=== PATIENT | female | born 1975 | race American Indian/Alaskan Native ===

== ENCOUNTER 2020-09-24 21:34 | Emergency (ER) | payer OTHER ==
[2020-09-24 22:39] LABS: Basophils % (Auto) 0.3 % (0.0-1.8); Eosinophils # (Auto) 0.1 K/mm3 (0.0-0.4); Eosinophils % (Auto) 0.5 % (0.0-4.3); Hematocrit 34.6 % (30.3-42.9); Hemoglobin 11.6 gm/dl (10.1-14.3); Lymphocytes # (Auto) 1.3 K/mm3 (1.2-5.4); Lymphocytes % (Auto) 13.5 % (13.4-35.0); Mean Corpuscular HGB Conc 34 % (30-34); Mean Corpuscular Volume 95 fl (79-97); Monocytes # (Auto) 0.6 K/mm3 (0.0-0.8); Monocytes % (Auto) 6.3 % (0.0-7.3); Platelet Count 278 K/mm3 (140-440); Red Blood Count 3.66 M/mm3 (3.65-5.03); Red Cell Distribution Width 13.2 % (13.2-15.2)
[2020-09-24] MEDS ORDERED: MORPHINE 4 MG/1 ML INJ IV ONE (22:54)
[2020-09-24] MEDS ORDERED: SODIUM CHLORIDE 0.9% 1000 ML 1,000 ML IV ONE (22:54)
[2020-09-24] MEDS ORDERED: ONDANSETRON 4 MG/2 ML INJ IV ONE (22:54)
[2020-09-24 23:04] LABS: Alanine Aminotransferase 34 units/L (7-56); Albumin 4.5 g/dL (3.9-5); BUN/Creatinine Ratio 24; Blood Urea Nitrogen 24 mg/dL (7-17); Hemolysis Index 2
--- NOTE | 2020-09-24 23:41 | Emergency Department Report ---
ED Abdominal Pain HPI - General Chief Complaint: Abdominal Pain Stated Complaint: ABDOMINAL PAIN,VOMITING Time Seen by Provider: 09/24/20 22:54 Source: patient Mode of arrival: Ambulatory Limitations: No Limitations - History of Present Illness Initial Comments: Patient is a 44-year-old female presents emergency room complaints of periumbilical abdominal pain that began a few days ago. She has associated nausea, vomiting, diarrhea. She denies any fever, urinary symptoms, hematochezia, melena, hematemesis, pus in the stool, abnormal vaginal discharge. Past medical history of hypertension and HSV. She reports that codeine causes itching. Last menstrual cycle August 26. No past abdominal surgical history. Patient states that she went to [facility] emergency room and was diagnosed with ovarian cyst and uterine fibroids but has not followed up with [facility]. - Related Data Previous Rx's Medication Instructions Recorded Last Taken Type Hyoscyamine Subl [Levsin Sl 0.125 0.125 mg SL Q6HR PRN #10 tab 09/25/20 Unknown Rx TAB] Naproxen [EC-Naproxen] 500 mg PO BID PRN #14 tablet. 09/25/20 Unknown Rx Ondansetron [Zofran Odt] 4 mg PO Q8HR PRN #10 tab.rapdis 09/25/20 Unknown Rx traMADoL [Ultram 50 MG tab] 50 mg PO Q6HR PRN #10 tablet 09/25/20 Unknown Rx Allergies Allergy/AdvReac Type Severity Reaction Status Date / Time No Known Allergies Allergy Verified 09/24/20 21:54 ED Review of Systems ROS: Stated complaint: ABDOMINAL PAIN,VOMITING Other details as noted in HPI Comment: All other systems reviewed and negative ED Past Medical Hx - Past Medical History Previous Medical History?: No Hx Hypertension: Yes - Surgical History Past Surgical History?: No - Medications Home Medications: Home Medications Medication Instructions Recorded Confirmed Last Taken Type Hyoscyamine Subl [Levsin Sl 0.125 0.125 mg SL Q6HR PRN #10 tab 09/25/20 Unknown Rx TAB] Naproxen [EC-Naproxen] 500 mg PO BID PRN #14 tablet. 09/25/20 Unknown Rx Ondansetron [Zofran Odt] 4 mg PO Q8HR PRN #10 tab.rapdis 09/25/20 Unknown Rx traMADoL [Ultram 50 MG tab] 50 mg PO Q6HR PRN #10 tablet 09/25/20 Unknown Rx ED Physical Exam - General Limitations: No Limitations General appearance: alert, in no apparent distress - Head Head exam: Present: atraumatic, normocephalic - Eye Eye exam: Present: normal appearance - ENT ENT exam: Present: mucous membranes moist - Respiratory Respiratory exam: Present: normal lung sounds bilaterally. Absent: respiratory distress, wheezes, rales, rhonchi, stridor, chest wall tenderness, accessory muscle use, decreased breath sounds, prolonged expiratory - Cardiovascular Cardiovascular Exam: Present: regular rate, normal rhythm, normal heart sounds. Absent: systolic murmur, diastolic murmur, rubs, gallop - GI/Abdominal GI/Abdominal exam: Present: soft, tenderness (periumbilical ), normal bowel sounds. Absent: distended, guarding, rebound, rigid - Neurological Exam Neurological exam: Present: alert, oriented X3 - Psychiatric Psychiatric exam: Present: normal affect, normal mood - Skin Skin exam: Present: warm, dry, intact ED Course Vital Signs 09/24/20 09/25/20 09/25/20 21:54 01:44 02:14 Temperature 98.4 F Pulse Rate 69 Respiratory 16 20 20 Rate Blood Pressure 128/68 [Left] O2 Sat by Pulse 96 Oximetry 09/25/20 09/25/20 04:13 04:16 Temperature 98.6 F Pulse Rate 70 Respiratory 20 20 Rate Blood Pressure 122/77 [Left] O2 Sat by Pulse 99 99 Oximetry ED Medical Decision Making - Lab Data Result diagrams: 09/24/20 22:17 09/24/20 22:17 Lab Results 09/24/20 09/24/20 09/24/20 Range/Units 22:17 22:17 22:17 WBC 9.9 (4.5-11.0) K/mm3 RBC 3.66 (3.65-5.03) M/mm3 Hgb 11.6 (10.1-14.3) gm/dl Hct 34.6 (30.3-42.9) % MCV 95 (79-97) fl MCH 32 (28-32) pg MCHC 34 (30-34) % RDW 13.2 (13.2-15.2) % Plt Count 278 (140-440) K/mm3 Lymph % (Auto) 13.5 (13.4-35.0) % [place] % (Auto) 6.3 (0.0-7.3) % Eos % (Auto) 0.5 (0.0-4.3) % Baso % (Auto) 0.3 (0.0-1.8) % Lymph # (Auto) 1.3 (1.2-5.4) K/mm3 [place] # (Auto) 0.6 (0.0-0.8) K/mm3 Eos # (Auto) 0.1 (0.0-0.4) K/mm3 Baso # (Auto) 0.0 (0.0-0.1) K/mm3 Seg Neutrophils % 79.4 H (40.0-70.0) % Seg Neutrophils # 7.9 H (1.8-7.7) K/mm3 Sodium 135 L (137-145) mmol/L Potassium 4.0 (3.6-5.0) mmol/L Chloride 97.7 L (98-107) mmol/L Carbon Dioxide 26 (22-30) mmol/L Anion Gap 15 mmol/L BUN 24 H (7-17) mg/dL Creatinine 1.0 (0.6-1.2) mg/dL Estimated GFR > 60 ml/min BUN/Creatinine Ratio 24 % Glucose 85 (65-100) mg/dL Calcium 9.0 (8.4-10.2) mg/dL Total Bilirubin 0.70 (0.1-1.2) mg/dL AST 18 (5-40) units/L ALT 34 (7-56) units/L Alkaline Phosphatase 79 (35-129) units/L Total Protein 7.3 (6.3-8.2) g/dL Albumin 4.5 (3.9-5) g/dL Albumin/Globulin Ratio 1.6 % Lipase 12 L (13-60) units/L Urine Color (Yellow) Urine Turbidity (Clear) Urine pH (5.0-7.0) Ur Specific [place] (1.003-1.030) Urine Protein (Negative) mg/dL Urine Glucose (UA) (Negative) mg/dL Urine Ketones (Negative) mg/dL Urine Blood (Negative) Urine Nitrite (Negative) Urine Bilirubin (Negative) Urine Urobilinogen (<2.0) mg/dL Ur Leukocyte Esterase (Negative) Urine WBC (Auto) (0.0-6.0) /HPF Urine RBC (Auto) (0.0-6.0) /HPF U Epithel Cells (Auto) (0-13.0) /HPF Urine Bacteria (Auto) (Negative) /HPF Urine Mucus /HPF Urine HCG, Qual (Negative) Urine Opiates Screen Urine Methadone Screen Ur Barbiturates Screen Ur Phencyclidine Scrn Ur Amphetamines Screen U Benzodiazepines Scrn Urine Cocaine Screen U Marijuana (THC) Screen Drugs of Abuse Note 09/25/20 09/25/20 Range/Units 01:23 01:23 WBC (4.5-11.0) K/mm3 RBC (3.65-5.03) M/mm3 Hgb (10.1-14.3) gm/dl Hct (30.3-42.9) % MCV (79-97) fl MCH (28-32) pg MCHC (30-34) % RDW (13.2-15.2) % Plt Count (140-440) K/mm3 Lymph % (Auto) (13.4-35.0) % [place] % (Auto) (0.0-7.3) % Eos % (Auto) (0.0-4.3) % Baso % (Auto) (0.0-1.8) % Lymph # (Auto) (1.2-5.4) K/mm3 [place] # (Auto) (0.0-0.8) K/mm3 Eos # (Auto) (0.0-0.4) K/mm3 Baso # (Auto) (0.0-0.1) K/mm3 Seg Neutrophils % (40.0-70.0) % Seg Neutrophils # (1.8-7.7) K/mm3 Sodium (137-145) mmol/L Potassium (3.6-5.0) mmol/L Chloride (98-107) mmol/L Carbon Dioxide (22-30) mmol/L Anion Gap mmol/L BUN (7-17) mg/dL Creatinine (0.6-1.2) mg/dL Estimated GFR ml/min BUN/Creatinine Ratio % Glucose (65-100) mg/dL Calcium (8.4-10.2) mg/dL Total Bilirubin (0.1-1.2) mg/dL AST (5-40) units/L ALT (7-56) units/L Alkaline Phosphatase (35-129) units/L Total Protein (6.3-8.2) g/dL Albumin (3.9-5) g/dL Albumin/Globulin Ratio % Lipase (13-60) units/L Urine Color Yellow (Yellow) Urine Turbidity Slightly-cloudy (Clear) Urine pH 5.0 (5.0-7.0) Ur Specific [place] 1.016 (1.003-1.030) Urine Protein <15 mg/dl (Negative) mg/dL Urine Glucose (UA) Neg (Negative) mg/dL Urine Ketones 20 (Negative) mg/dL Urine Blood Mod (Negative) Urine Nitrite Neg (Negative) Urine Bilirubin Neg (Negative) Urine Urobilinogen 4.0 (<2.0) mg/dL Ur Leukocyte Esterase Sm (Negative) Urine WBC (Auto) 6.0 (0.0-6.0) /HPF Urine RBC (Auto) 3.0 (0.0-6.0) /HPF U Epithel Cells (Auto) 22.0 H (0-13.0) /HPF Urine Bacteria (Auto) 1+ (Negative) /HPF Urine Mucus Few /HPF Urine HCG, Qual Negative (Negative) Urine Opiates Screen Presumptive negative Urine Methadone Screen Presumptive negative Ur Barbiturates Screen Presumptive negative Ur Phencyclidine Scrn Presumptive negative Ur Amphetamines Screen Presumptive negative U Benzodiazepines Scrn Presumptive negative Urine Cocaine Screen Presumptive negative U Marijuana (THC) Screen Presumptive negative Drugs of Abuse Note Disclamer Vital Signs 09/24/20 09/25/20 09/25/20 21:54 01:44 02:14 Temperature 98.4 F Pulse Rate 69 Respiratory 16 20 20 Rate Blood Pressure 128/68 [Left] O2 Sat by Pulse 96 Oximetry 09/25/20 09/25/20 04:13 04:16 Temperature 98.6 F Pulse Rate 70 Respiratory 20 20 Rate Blood Pressure 122/77 [Left] O2 Sat by Pulse 99 99 Oximetry - Radiology Data Radiology results: report reviewed Ordering Physician: JORGITO MOYA Date of Service: 09/24/20 Procedure(s): CT abdomen pelvis w con Accession Number(s): [id number] cc: JORGITO MOYA CT abdomen pelvis w con INDICATION / CLINICAL INFORMATION: abd pain, n/v/d. TECHNIQUE: Axial CT imaging of abdomen and pelvis was obtained with IV contrast. Coronal and sagittal reformatted imaging obtained and reviewed. All CT scans at this location are performed using CT dose reduction for ALARA by means of automated exposure control. COMPARISON: None available. FINDINGS: CT abdomen with contrast demonstrates grossly normal appearance of the liver, spleen, pancreas, kidneys, and adrenal glands. No obvious gallbladder abnormality or biliary dilatation. CT pelvis with IV contrast demonstrates an IUD within the endometrium of the uterus. IUD appears to be in satisfactory position. There is a round benign-appearing mass within the fundus of the uterus measuring 5.1 x 4.7 cm. This is most likely a uterine fibroid. No additional pelvic masses are noted. No free fluid. No focal inflammatory change. Incidental note is made of a left ovarian cyst measuring 2.8 cm. A normal appendix is present. Moderate amount retained stool is noted throughout the colon. Otherwise the GI tract is unremarkable. Visualized lung bases are clear. Review of skeletal structures does not reveal any significant acute osseous abnormality. IMPRESSION: 1. 5 cm uterine fundal mass consistent with fibroid. 2. 2.8 cm left ovarian cyst. 3. No other additional significant findings. 4/ GI tract is grossly unremarkable, other than moderate amount retained stool.. Signer Name: Denise Andino MD Signed: 09/25/2020 2:44 AM Workstation Name: [id number] Transcribed By: Dictated By: Denise Andino MD Electronically Authenticated By: Denise Andino MD Signed Date/Time: 09/25/20243 DD/ 9 TD/TT: - Medical Decision Making Patient is a 44-year-old female presents emergency room complaints of periumbilical abdominal pain that began a few days ago. She has associated nausea, vomiting, diarrhea. She denies any fever, urinary symptoms, hematochezia, melena, hematemesis, pus in the stool, abnormal vaginal discharge. Past medical history of hypertension and HSV. She reports that codeine causes itching. Last menstrual cycle August 7. No past abdominal surgical history. Patient states that she went to [facility] emergency room and was diagnosed with ovarian cyst and uterine fibroids but has not followed up with [facility]. Vitals are normal. On exam patient has periumbilical abdominal tenderness on patient, no guarding, no rebound, no rigidity, normal bowel sounds, no peritoneal signs. Labs are stable. UA without evidence of UTI. UDS negative. CT abdomen pelvis with IV contrast: 1. 5 cm uterine fundal mass consistent with fibroid. 2. 2.8 cm left ovarian cyst. 3. No other additional significant findings. 4/ GI tract is grossly unremarkable, other than moderate amount retained stool.. Discussed all results with patient and answer questions. Patient given medications on the emergency department as she did not drive and symptoms improved. Patient given prescription for medications. Discussed the importance of primary care and [facility] follow-up. Advised patient Please take medication as prescribed as needed. Increase your water intake. Eat a bland liquid diet and slowly advance her diet as tolerated. Follow-up with [facility]. Follow-up with a primary care doctor. Return to emergency room for any new or worsening symptoms Critical care attestation.: If time is entered above; I have spent that time in minutes in the direct care of this critically ill patient, excluding procedure time. ED Disposition Clinical Impression: Nausea vomiting and diarrhea Abdominal pain Qualifiers: Abdominal location: periumbilical Qualified Code(s): R10.33 - Periumbilical pain Uterine fibroid Qualifiers: Uterine leiomyoma location: unspecified location Qualified Code(s): D25.9 - Leiomyoma of uterus, unspecified Ovarian cyst Qualifiers: Laterality: left Qualified Code(s): N83.202 - Unspecified ovarian cyst, left side Disposition: DC- TO HOME OR SELFCARE Is pt being admited?: No Does the pt Need Aspirin: No Condition: Stable Instructions: Uterine Fibroids, [id number], Ovarian Cyst, [id number], Abdominal Pain (ED) Additional Instructions: Please take medication as prescribed as needed. Increase your water intake. Eat a bland liquid diet and slowly advance her diet as tolerated. Follow-up with [facility]. Follow-up with a primary care doctor. Return to emergency room for any new or worsening symptoms Prescriptions: Naproxen [EC-Naproxen] 500 mg PO BID PRN #14 tablet. PRN Reason: Pain, Moderate (4-6) Hyoscyamine Subl [Levsin Sl 0.125 TAB] 0.125 mg SL Q6HR PRN #10 tab PRN Reason: diarrhea/cramping traMADoL [Ultram 50 MG tab] 50 mg PO Q6HR PRN #10 tablet PRN Reason: Pain , Severe (7-10) Ondansetron [Zofran Odt] 4 mg PO Q8HR PRN #10 tab.rapdis PRN Reason: vomiting Referrals: [facility] [Provider Group] - 2-3 Days ENEIDA MARCELO MD [Staff Physician] - 2-3 Days Time of Disposition: 02:50 Print Language: [place]OU[place] KORE[place]
[2020-09-25] MEDS ORDERED: MORPHINE 4 MG/1 ML INJ ONE (01:35)
[2020-09-25] MEDS ORDERED: ONDANSETRON 4 MG/2 ML INJ ONE (01:35)
[2020-09-25 01:40] LABS: Bacteria,Urine 1+ /HPF (Negative); Bilirubin,Urine NEG (Negative); Blood,Urine MOD (Negative); Color,Urine Yellow (Yellow); Mucus,Urine FEW /HPF; Protein,Urine <15 mg/dL mg/dL (Negative)
[2020-09-25 01:42] LABS: Amphetamine Screen,Urine PRESUMPTIVE NEGATIVE; Benzodiazepines Screen,Urine PRESUMPTIVE NEGATIVE; Cannabinoid Screen,Urine PRESUMPTIVE NEGATIVE; Cocaine Screen,Urine PRESUMPTIVE NEGATIVE; Methadone Screen,Urine PRESUMPTIVE NEGATIVE; Opiate Screen,Urine PRESUMPTIVE NEGATIVE
[2020-09-25 01:46] LABS: HCG Qualitative,Urine Negative (Negative)
--- NOTE | 2020-09-25 02:48 | Cat Scan Report ---
CT abdomen pelvis w con INDICATION / CLINICAL INFORMATION: abd pain, n/v/d. TECHNIQUE: Axial CT imaging of abdomen and pelvis was obtained with IV contrast. Coronal and sagittal reformatte d imaging obtained and reviewed. All CT scans at this location are performed using CT dose reduction for ALARA by means of automated exposure control. COMPARISON: None available. FINDINGS: CT abdomen with contrast demonstrates grossly normal appearance of the liver, spleen, pancreas, kidne ys, and adrenal glands. No obvious gallbladder abnormality or biliary dilatation. CT pelvis with IV contrast demonstrates an IUD within the endometrium of the uterus. IUD appears to b e in satisfactory position. There is a round benign-appearing mass within the fundus of the uterus me asuring 5.1 x 4.7 cm. This is most likely a uterine fibroid. No additional pelvic masses are noted. N o free fluid. No focal inflammatory change. Incidental note is made of a left ovarian cyst measuring 2.8 cm. A normal appendix is present. Moderate amount retained stool is noted throughout the colon. O therwise the GI tract is unremarkable. Visualized lung bases are clear. Review of skeletal structures does not reveal any significant acute osseous abnormality. IMPRESSION: 1. 5 cm uterine fundal mass consistent with fibroid. 2. 2.8 cm left ovarian cyst. 3. No other additional significant findings. 4/ GI tract is grossly unremarkable, other than moderate amount retained stool.. Signer Name: Denise Andino MD Signed: 09/25/2020 2:44 AM Workstation Name: [id number]
[2020-09-25 04:13] VITALS: BP 122/77
== END 2020-09-25 06:28 | disposition home or self-care (01) ==
LOC: ED 21:34
DX: N83.202 Unspecified ovarian cyst, left side (principal); D25.9 Leiomyoma of uterus, unspecified; R11.2 Nausea with vomiting, unspecified; I10 Essential (primary) hypertension; Z79.899 Other long term (current) drug therapy
CPT/HCPCS: 36415; 74177; 80053; 80307; 81001; 81025; 83690; 85025; 96361; 96374; 96375; 99284; J2270; J2405; J7030; Q9967

== ENCOUNTER 2020-09-29 08:06 | Emergency (ER) | payer OTHER ==
[2020-09-29] MEDS ORDERED: MORPHINE 4 MG/1 ML INJ IV ONE (10:29)
[2020-09-29] MEDS ORDERED: SODIUM CHLORIDE 0.9% 1000 ML 1,000 ML IV ONE (10:29)
[2020-09-29] MEDS ORDERED: ONDANSETRON 4 MG/2 ML INJ IV ONE (10:29)
[2020-09-29 10:41] LABS: Basophils % (Auto) 0.4 % (0.0-1.8); Eosinophils # (Auto) 0.1 K/mm3 (0.0-0.4); Eosinophils % (Auto) 1.4 % (0.0-4.3); Hematocrit 34.3 % (30.3-42.9); Hemoglobin 11.8 gm/dl (10.1-14.3); Lymphocytes # (Auto) 1.4 K/mm3 (1.2-5.4); Mean Corpuscular HGB Conc 34 % (30-34); Mean Corpuscular Volume 95 fl (79-97); Platelet Count 297 K/mm3 (140-440); Red Blood Count 3.62 M/mm3 (3.65-5.03); Red Cell Distribution Width 12.8 % (13.2-15.2)
[2020-09-29 10:58] LABS: Alanine Aminotransferase 25 units/L (7-56); Albumin 4.1 g/dL (3.9-5); BUN/Creatinine Ratio 15; Blood Urea Nitrogen 15 mg/dL (7-17); Calcium 9.7 mg/dL (8.4-10.2); Hemolysis Index 1
[2020-09-29 11:35] LABS: Bilirubin,Urine NEG (Negative); Blood,Urine NEG (Negative); Color,Urine Amber (Yellow); Hyaline Casts,Urine 4 /LPF; Mucus,Urine 3+ /HPF
--- NOTE | 2020-09-29 11:43 | Ultrasound Report ---
ULTRASOUND ABDOMEN, COMPLETE INDICATION: abd/pelvic pain. COMPARISON: No relevant prior imaging study available. FINDINGS: Pancreas: No significant abnormality. Abdominal Aorta: No significant abnormality. IVC: No significant abnormality. Liver: No significant abnormality. Normal hepatopedal blood flow in the main portal vein. Gallbladder: Mild echogenic material suspicious for gallbladder sludge. Bile ducts: No significant abnormality. Common bile duct measures 3 mm. Kidneys: Right: No significant abnormality. Left: No significant abnormality. Spleen: No significant abnormality. Free fluid: None. Additional Findings: None. IMPRESSION: 1. No sonographic abnormality of the abdomen. Signer Name: Roque Schmidt MD Signed: 09/29/2020 11:39 AM Workstation Name: [email or web address]
--- NOTE | 2020-09-29 11:44 | Ultrasound Report ---
Pelvic ultrasound with Doppler INDICATION: Pelvic pain FINDINGS: The uterus measures 10 x 7 x 6 cm. There is a focal nodular lesion within the upper fundus of the uterus measuring 4 cm in diameter. The right ovary is normal. The left ovary is slightly enlar ged measuring 5.3 x 3.8 cm. There is a 4.5 cm cystlike lesion within the left ovary that appears mild ly complex. IMPRESSION: Mildly complex 4.5 cm cystic lesion within the left ovary may represent hemorrhagic cyst. Fibroid uterus. Signer Name: Roque Schmidt MD Signed: 09/29/2020 11:40 AM Workstation Name: [id number]
--- NOTE | 2020-09-29 12:39 | Emergency Department Report ---
ED Abdominal Pain HPI - General Chief Complaint: Abdominal Pain Stated Complaint: EMESIS/DIZZINESS/ABD PAIN Time Seen by Provider: 09/29/20 09:27 Source: patient Mode of arrival: Ambulatory Limitations: No Limitations - History of Present Illness Initial Comments: This is a 44-year-old female nontoxic, well nourished in appearance, no acute signs of distress presents to the ED with c/o of acute on chronic intermittent nausea and vomiting and abdominal pain several weeks. Patient denies any vaginal discharge. Patient describes vomiting as food content and yellow gastric acid. Patient describes abdominal pain as cramping and aching with level of 8/10 upper abdomen but mostly in the pelvic area. Patient denies chest pain, short of breath, fever, hemoptysis, blood in stool, chills, headache, stiff neck, numbness or tingling. Patient denies any radiation of pain. Patient denies any diarrhea or constipation. Denies any blood in stool. P atient denies any recent travels. Patient patient denies any drug allergies or significant past medical history. Patient stated has history of uterine fibroids. MD Complaint: abdominal pain -: week(s) Location: LUQ, RUQ Radiation: none Migration to: no migration Severity: mild Severity scale (0 -10): 8 Quality: aching Consistency: intermittent Improves With: nothing Worsens With: nothing Associated Symptoms: nausea, vomiting. denies: diarrhea, fever, chills, constipation, dysuria, hematemesis, hematochezia, melena, hematuria, anorexia, syncope - Related Data Previous Rx's Medication Instructions Recorded Last Taken Type Hyoscyamine Subl [Levsin Sl 0.125 0.125 mg SL Q6HR PRN #10 tab 09/25/20 Unknown Rx TAB] Naproxen [EC-Naproxen] 500 mg PO BID PRN #14 tablet. 09/25/20 Unknown Rx Ondansetron [Zofran Odt] 4 mg PO Q8HR PRN #10 tab.rapamanda 09/25/20 Unknown Rx traMADoL [Ultram 50 MG tab] 50 mg PO Q6HR PRN #10 tablet 09/25/20 Unknown Rx Naproxen 500 mg PO Q12H PRN #12 tablet 09/29/20 Unknown Rx Ondansetron [Zofran Odt] 4 mg PO Q8HR PRN #12 tab.mackenzie 09/29/20 Unknown Rx cephALEXin [Keflex] 500 mg PO Q8HR #21 cap 09/29/20 Unknown Rx Allergies Allergy/AdvReac Type Severity Reaction Status Date / Time No Known Allergies Allergy Verified 09/29/20 08:08 ED Review of Systems ROS: Stated complaint: EMESIS/DIZZINESS/ABD PAIN Other details as noted in HPI Comment: All other systems reviewed and negative Constitutional: denies: chills, fever Eyes: denies: eye pain, eye discharge, vision change ENT: denies: ear pain, throat pain Respiratory: denies: cough, shortness of breath, wheezing Cardiovascular: denies: chest pain, palpitations Endocrine: no symptoms reported Gastrointestinal: abdominal pain, nausea, vomiting. denies: diarrhea, con stipation, hematemesis, melena, hematochezia Genitourinary: denies: urgency, dysuria, discharge Musculoskeletal: denies: back pain, joint swelling, arthralgia Skin: denies: rash, lesions Neurological: denies: headache, weakness, paresthesias Psychiatric: denies: anxiety, depression Hematological/Lymphatic: denies: easy bleeding, easy bruising ED Past Medical Hx - Past Medical History Hx Hypertension: Yes Additional medical history: FIBROIDS, CYST - Surgical History Past Surgical History?: No - Social History Smoking Status: Never Smoker - Medications Home Medications: Home Medications Medication Instructions Recorded Confirmed Last Taken Type Hyoscyamine Subl [Levsin Sl 0.125 0.125 mg SL Q6HR PRN #10 tab 09/25/20 Unknown Rx TAB] Naproxen [EC-Naproxen] 500 mg PO BID PRN #14 tablet. 09/25/20 Unknown Rx Ondansetron [Zofran Odt] 4 mg PO Q8HR PRN #10 tab.rapdis 09/25/20 Unknown Rx traMADoL [Ultram 50 MG tab] 50 mg PO Q6HR PRN #10 tablet 09/25/20 Unknown Rx Naproxen 500 mg PO Q12H PRN #12 tablet 09/29/20 Unknown Rx Ondansetron [Zofran Odt] 4 mg PO Q8HR PRN #12 tab.rapdis 09/29/20 Unknown Rx cephALEXin [Keflex] 500 mg PO Q8HR #21 cap 09/29/20 Unknown Rx ED Physical Exam - General Limitations: No Limitations General appearance: alert, in no apparent distress - Head Head exam: Present: atraumatic, normocephalic - Eye Eye exam: Present: normal appearance - ENT ENT exam: Present: normal exam, normal orophraynx - Neck Neck exam: Present: normal inspection, full ROM. Absent: tenderness, meningismus, lymphadenopathy - Respiratory Respiratory exam: Present: normal lung sounds bilaterally. Absent: respiratory distress, wheezes, rales, rhonchi, stridor, chest wall tenderness, accessory muscle use, decreased breath sounds, prolonged expiratory - Cardiovascular Cardiovascular Exam: Present: regular rate, normal rhythm, normal heart sounds. Absent: bradycardia, tachycardia, irregular rhythm, systolic murmur, diastolic murmur, rubs, gallop - GI/Abdominal GI/Abdominal exam: Present: soft, tenderness (Right upper and left upper abdomen), normal bowel sounds. Absent: distended, guarding, rebound, rigid, diminished bowel sounds - Extremities Exam Extremities exam: Present: normal inspection, full ROM - Back Exam Back exam: Present: normal inspection, full ROM. Absent: tenderness, CVA tenderness (R), CVA tenderness (L), muscle spasm, paraspinal tenderness, vertebral tenderness, rash noted - Neurological Exam Neurological exam: Present: alert, oriented X3, normal gait - Psychiatric Psychiatric exam: Present: normal affect, normal mood - Skin Skin exam: Present: warm, dry, intact, normal color. Absent: rash ED Course Vital Signs 09/29/20 09/29/20 08:11 14:37 Temperature 98.2 F Pulse Rate 57 L 61 Respiratory 18 16 Rate Blood Pressure 120/65 Blood Pressure 150/65 [Left] O2 Sat by Pulse 96 98 Oximetry - Reevaluation(s) Reevaluation #1: 09/29/20 12:39 Patient is speaking in full sentences with no signs of distress noted. Reevaluation #2: 09/29/20 13:43 Patient has worsening epigastric pain. Will order CT scan with IV contrast. Will order pain medication as well. ED Medical Decision Making - Lab Data Result diagrams: 09/29/20 09:59 09/29/20 09:59 Lab Results 09/29/20 09/29/20 09/29/20 Range/Units 09:59 09:59 09:59 WBC 8.8 (4.5-11.0) K/mm3 RBC 3.62 L (3.65-5.03) M/mm3 Hgb 11.8 (10.1-14.3) gm/dl Hct 34.3 (30.3-42.9) % MCV 95 (79-97) fl MCH 33 H (28-32) pg MCHC 34 (30-34) % RDW 12.8 L (13.2-15.2) % Plt Count 297 (140-440) K/mm3 Lymph % (Auto) 16.0 (13.4-35.0) % Morgan % (Auto) 11.0 H (0.0-7.3) % Eos % (Auto) 1.4 (0.0-4.3) % Baso % (Auto) 0.4 (0.0-1.8) % Lymph # (Auto) 1.4 (1.2-5.4) K/mm3 Morgan # (Auto) 1.0 H (0.0-0.8) K/mm3 Eos # (Auto) 0.1 (0.0-0.4) K/mm3 Baso # (Auto) 0.0 (0.0-0.1) K/mm3 Seg Neutrophils % 71.2 H (40.0-70.0) % Seg Neutrophils # 6.3 (1.8-7.7) K/mm3 Sodium 137 (137-145) mmol/L Potassium 3.5 L (3.6-5.0) mmol/L Chloride 98.5 (98-107) mmol/L Carbon Dioxide 30 (22-30) mmol/L Anion Gap 12 mmol/L BUN 15 (7-17) mg/dL Creatinine 1.0 (0.6-1.2) mg/dL Estimated GFR > 60 ml/min BUN/Creatinine Ratio 15 % Glucose 80 (65-100) mg/dL Calcium 9.7 (8.4-10.2) mg/dL Total Bilirubin 0.50 (0.1-1.2) mg/dL AST 21 (5-40) units/L ALT 25 (7-56) units/L Alkaline Phosphatase 77 (35-129) units/L Total Protein 7.5 (6.3-8.2) g/dL Albumin 4.1 (3.9-5) g/dL Albumin/Globulin Ratio 1.2 % Lipase 14 (13-60) units/L HCG, Qual Negative (Negative) Urine Color (Yellow) Urine Turbidity (Clear) Urine pH (5.0-7.0) Ur Specific [place] (1.003-1.030) Urine Protein (Negative) mg/dL Urine Glucose (UA) (Negative) mg/dL Urine Ketones (Negative) mg/dL Urine Blood (Negative) Urine Nitrite (Negative) Urine Bilirubin (Negative) Urine Urobilinogen (<2.0) mg/dL Ur Leukocyte Esterase (Negative) Urine WBC (Auto) (0.0-6.0) /HPF Urine RBC (Auto) (0.0-6.0) /HPF U Epithel Cells (Auto) (0-13.0) /HPF Hyaline Casts /LPF Urine Mucus /HPF 09/29/20 Range/Units 11:23 WBC (4.5-11.0) K/mm3 RBC (3.65-5.03) M/mm3 Hgb (10.1-14.3) gm/dl Hct (30.3-42.9) % MCV (79-97) fl MCH (28-32) pg MCHC (30-34) % RDW (13.2-15.2) % Plt Count (140-440) K/mm3 Lymph % (Auto) (13.4-35.0) % Morgan % (Auto) (0.0-7.3) % Eos % (Auto) (0.0-4.3) % Baso % (Auto) (0.0-1.8) % Lymph # (Auto) (1.2-5.4) K/mm3 Morgan # (Auto) (0.0-0.8) K/mm3 Eos # (Auto) (0.0-0.4) K/mm3 Baso # (Auto) (0.0-0.1) K/mm3 Seg Neutrophils % (40.0-70.0) % Seg Neutrophils # (1.8-7.7) K/mm3 Sodium (137-145) mmol/L Potassium (3.6-5.0) mmol/L Chloride (98-107) mmol/L Carbon Dioxide (22-30) mmol/L Anion Gap mmol/L BUN (7-17) mg/dL Creatinine (0.6-1.2) mg/dL Estimated GFR ml/min BUN/Creatinine Ratio % Glucose (65-100) mg/dL Calcium (8.4-10.2) mg/dL Total Bilirubin (0.1-1.2) mg/dL AST (5-40) units/L ALT (7-56) units/L Alkaline Phosphatase (35-129) units/L Total Protein (6.3-8.2) g/dL Albumin (3.9-5) g/dL Albumin/Globulin Ratio % Lipase (13-60) units/L HCG, Qual (Negative) Urine Color Dulce (Yellow) Urine Turbidity Clear (Clear) Urine pH 5.0 (5.0-7.0) Ur Specific [place] 1.024 (1.003-1.030) Urine Protein 30 mg/dl (Negative) mg/dL Urine Glucose (UA) Neg (Negative) mg/dL Urine Ketones Tr (Negative) mg/dL Urine Blood Neg (Negative) Urine Nitrite Neg (Negative) Urine Bilirubin Neg (Negative) Urine Urobilinogen 4.0 (<2.0) mg/dL Ur Leukocyte Esterase Neg (Negative) Urine WBC (Auto) 10.0 H (0.0-6.0) /HPF Urine RBC (Auto) 4.0 (0.0-6.0) /HPF U Epithel Cells (Auto) 6.0 (0-13.0) /HPF Hyaline Casts 4 /LPF Urine Mucus 3+ /HPF - Radiology Data [facility] [address] [place] [address] Cat Scan Report Signed Patient: MANI GIBSON MR#: [id number] : 1975 Acct:[id number] Age/Sex: 44 / F ADM Date: 09/29/20 Loc: ED Attending Dr: Ordering Physician: BRIE CURRIE NP Date of Service: 09/29/20 Procedure(s): CT abdomen pelvis w con Accession Number(s): [id number] cc: BRIE CURRIE NP CT ABDOMEN AND PELVIS WITH CONTRAST INDICATION / CLINICAL INFORMATION: Epigastric pain. TECHNIQUE: Axial CT images were obtained through the abdomen and pelvis after IV contrast. All CT scans at this location are performed using CT dose reduction for ALARA by means of automated exposure control. COMPARISON: Same-day abdominal and pelvic ultrasound FINDINGS: LOWER CHEST: No significant abnormality LIVER: Nonspecific heterogeneous enhancement of the liver with mild periportal edema. Liver is mildly enlarged, measuring 17.9 cm. GALLBLADDER/BILIARY TREE: No significant CT abnormality. No biliary dilatation. PANCREAS: No significant abnormality SPLEEN: No significant abnormality ADRENALS: No significant abnormality KIDNEYS / URETER: No significant abnormality URINARY BLADDER: No significant abnormality REPRODUCTIVE ORGANS: IUD is present within the uterus. Uterine fibroid measures 4.8 cm. Redemonstrated left adnexal cyst. STOMACH / SMALL BOWEL: Stomach and small bowel are normal in caliber. No evidence of bowel inflammation. COLON: The colon is unremarkable. The appendix is normal in caliber. LYMPH NODES: No significant adenopathy. VASCULATURE: No significant abnormality. OTHER: No free air, free fluid, or focal fluid collection is identified. SKELETAL SYSTEM: No acute osseous findings. IMPRESSION: 1. Heterogeneous enhancement of the liver with mild peripo rtal edema and mild hepatomegaly. Findings are nonspecific though may be related to hepatic congestion. Hepatitis may have a similar appearance. 2. Otherwise, no acute abnormality of the abdomen or pelvis. 3. Other chronic and incidental findings as above. Signer Name: German Parks MD Signed: 09/29/2020 2:55 PM Workstation Name: [id number] Transcribed By: JS Dictated By: GERMAN PARKS MD Electronically Authenticated By: GERMAN PARKS MD Signed Date/Time: 09/29/20 1455 DD/ 1446 TD/TT: [facility] [address] [place] [address] XRay Report Signed Patient: MANI GIBSON MR#: [id number] : 1975 Acct:[id number] Age/Sex: 44 / F ADM Date: 09/29/20 Loc: ED Attending Dr: Ordering Physician: BRIE CURRIE NP Date of Service: 09/29/20 Procedure(s): XR abd series w cxr 1V Accession Number(s): [id number] cc: BRIE CURRIE NP Fluoro Time In Minutes: ABDOMEN 3 VIEW(S) INCLUDING CHEST INDICATION / CLINICAL INFORMATION: abd pain w/ n/v. COMPARISON: None available. FINDINGS: SUPPORT DEVICES: None. HEART / MEDIASTINUM: No significant abnormality. LUNGS / PLEURA: No significant pulmonary or pleural abnormality. No pneumothorax BOWEL: No dilated bowel. FREE AIR / EXTRALUMINAL GAS: None seen. CALCIFICATIONS: No significant abnormal calcifications. IUD is in place SKELETAL STRUCTURES: No significant abnormality. IMPRESSION: 1. No significant abnormality. Signer Name: Hua Rider MD Signed: 09/29/2020 12:33 PM Workstation Name: [id number] Transcribed By: Dictated By: Hua Rider MD Electronically Authenticated By: Hua Rider MD Signed Date/Time: 09/29/20 1233 DD/ 1232 TD/TT: [address] [address] Ultrasound Report Signed Patient: MANI GIBSON MR#: [id number] : 1975 Acct:[id number] Age/Sex: 44 / F ADM Date: 09/29/20 Loc: ED Attending Dr: Ordering Physician: BRIE CURRIE NP Date of Service: 09/29/20 Procedure(s): US pelvis duplex doppler comp Accession Number(s): [id number] cc: BRIE CURRIE NP Pelvic ultrasound with Doppler INDICATION: Pelvic pain FINDINGS: The uterus measures 10 x 7 x 6 cm. There is a focal nodular lesion within the upper fundus of the uterus measuring 4 cm in diameter. The right ovary is normal. The left ovary is slightly enlarged measuring 5.3 x 3.8 cm. There is a 4.5 cm cystlike lesion within the left ovary that appears mildly complex. IMPRESSION: Mildly complex 4.5 cm cystic lesion within the left ovary may represent hemorrhagic cyst. Fibroid uterus. Signer Name: Roque Schmidt MD Signed: 09/29/2020 11:40 AM Workstation Name: [id number] Transcribed By: Dictated By: Roque Schmidt MD Electronically Authenticated By: Roque Schmidt MD Signed Date/Time: 09/29/20 1140 DD/ 1139 TD/TT: [address] [address] Ultrasound Report Signed Patient: MANI GIBSON MR#: [id number] : 1975 Acct:[id number] Age/Sex: 44 / F ADM Date: 09/29/20 Loc: ED Attending Dr: Ordering Physician: BRIE CURRIE NP Date of Service: 09/29/20 Procedure(s): US abdomen complete Accession Number(s): [id number] cc: BRIE CURRIE NP ULTRASOUND ABDOMEN, COMPLETE INDICATION: abd/pelvic pain. COMPARISON: No relevant prior imaging study available. FINDINGS: Pancreas: No significant abnormality. Abdominal Aorta: No significant abnormality. IVC: No significant abnormality. Liver: No significant abnormality. Normal hepatopedal blood flow in the main portal vein. Gallbladder: Mild echogenic material suspicious for g allbladder sludge. Bile ducts: No significant abnormality. Common bile duct measures 3 mm. Kidneys: Right: No significant abnormality. Left: No significant abnormality. Spleen: No significant abnormality. Free fluid: None. Additional Findings: None. IMPRESSION: 1. No sonographic abnormality of the abdomen. Signer Name: Roque Schmidt MD Signed: 09/29/2020 11:39 AM Workstation Name: [email or web address] Transcribed By: AKILAH Dictated By: Roque Schmidt MD Electronically Authenticated By: Roque Schmidt MD Signed Date/Time: 09/29/20 1139 DD/ 1138 TD/TT: - Medical Decision Making This is a 44-year-old female that presents with abdominal pain with n/v. Patient is stable and was examined by me. Labs obtained. UA obtained. CT of abdomen obtained and dictated by the radiologist. Patient is notified of the report with no questions noted by the patient. Vital signs are stable prior to discharge. Patient received medical treatment in the ED which patient stated symptoms has resovled and subsided. Was instructed note to operate any machinery due to possible drowsiness and stated someone will drive the patient home. A by mouth challenge has been obtained and patient tolerated well with no nausea vomiting. Patient was notified of strict precautions of appendicitis symptoms and to return to the ED if symptoms occurs as soon as possible. Rose Mary ent was also instructed to Follow-up with a primary care doctor in 3-5 days or if symptoms worsen and continue return to emergency room as soon as possible. At time of discharge, the patient does not seem toxic or ill in appearance. No acute signs of distress noted. Patient agrees to discharge treatment plan of care. No further questions noted by the patient. Critical care attestation.: If time is entered above; I have spent that time in minutes in the direct care o f this critically ill patient, excluding procedure time. ED Disposition Clinical Impression: Enlargement of liver Abdominal pain Qualifiers: Abdominal location: upper abdomen, unspecified Qualified Code(s): R10.10 - Upper abdominal pain, unspecified Ovarian cyst Qualifiers: Laterality: unspecified laterality Qualified Code(s): N83.209 - Unspecified ovarian cyst, unspecified side Uterine fibroid Qualifiers: Uterine leiomyoma location: unspecified location Qualified Code(s): D25.9 - Leiomyoma of uterus, unspecified Nausea & vomiting Qualifiers: Vomiting type: unspecified Vomiting Intractability: non-intractable Qualified Code(s): R11.2 - Nausea with vomiting, unspecified UTI (urinary tract infection) Qualifiers: Urinary tract infection type: acute cystitis Hematuria presence: without hematuria Qualified Code(s): N30.00 - Acute cystitis without hematuria Disposition: TO HOME OR SELFCARE Is pt being admited?: No Does the pt Need Aspirin: No Condition: Stable Instructions: Abdominal Pain, Adult, Nausea and Vomiting, Adult, Abdominal Pain (ED) Additional Instructions: Follow-up with a primary care and athletic trainer doctor in 3-5 days or if symptoms worsen and continue return to emergency room as soon as possible. Prescriptions: cephALEXin [Keflex] 500 mg PO Q8HR #21 cap Naproxen 500 mg PO Q12H PRN #12 tablet PRN Reason: Pain , Severe (7-10) Ondansetron [Zofran Odt] 4 mg PO Q8HR PRN #12 tab.rapdis PRN Reason: Nausea Referrals: PRIMARY MD EMERALD [Primary Care Provider] - 3-5 Days NEIDA FERNANDEZ MD [Staff Physician] - 3-5 Days [facility] [Provider Group] - 3-5 Days Time of Disposition: 15:47
[2020-09-29] MEDS ORDERED: IBUPROFEN 800 MG TAB PO ONE (13:22)
[2020-09-29] MEDS ORDERED: LIDOCAINE VISCOUS 2% 15 ML ORAL LIQD PO ONE (13:43)
[2020-09-29] MEDS ORDERED: diphenhydrAMINE 50 MG/ML VIAL IV ONE (13:43)
[2020-09-29] MEDS ORDERED: METOCLOPRAMIDE 10 MG/2 ML INJ IV ONE (13:43)
[2020-09-29] MEDS ORDERED: FAMOTIDINE 20 MG/2 ML INJ IV ONE (13:44)
[2020-09-29] MEDS ORDERED: ALUM-MAG HYDROXIDE-SIMETHICONE 200-200-20MG/5ML ORAL LIQD 30 ML PO ONE (13:44)
--- NOTE | 2020-09-29 14:59 | Cat Scan Report ---
CT ABDOMEN AND PELVIS WITH CONTRAST INDICATION / CLINICAL INFORMATION: Epigastric pain. TECHNIQUE: Axial CT images were obtained through the abdomen and pelvis after IV contrast. All CT sc ans at this location are performed using CT dose reduction for ALARA by means of automated exposure c ontrol. COMPARISON: Same-day abdominal and pelvic ultrasound FINDINGS: LOWER CHEST: No significant abnormality LIVER: Nonspecific heterogeneous enhancement of the liver with mild periportal edema. Liver is mildly enlarged, measuring 17.9 cm. GALLBLADDER/BILIARY TREE: No significant CT abnormality. No biliary dilatation. PANCREAS: No significant abnormality SPLEEN: No significant abnormality ADRENALS: No significant abnormality KIDNEYS / URETER: No significant abnormality URINARY BLADDER: No significant abnormality REPRODUCTIVE ORGANS: IUD is present within the uterus. Uterine fibroid measures 4.8 cm. Redemonstrate d left adnexal cyst. STOMACH / SMALL BOWEL: Stomach and small bowel are normal in caliber. No evidence of bowel inflammati on. COLON: The colon is unremarkable. The appendix is normal in caliber. LYMPH NODES: No significant adenopathy. VASCULATURE: No significant abnormality. OTHER: No free air, free fluid, or focal fluid collection is identified. SKELETAL SYSTEM: No acute osseous findings. IMPRESSION: 1. Heterogeneous enhancement of the liver with mild periportal edema and mild hepatomegaly. Findings are nonspecific though may be related to hepatic congestion. Hepatitis may have a similar appearance. 2. Otherwise, no acute abnormality of the abdomen or pelvis. 3. Other chronic and incidental findings as above. Signer Name: Andrea Parks MD Signed: 09/29/2020 2:55 PM Workstation Name: [id number]
[2020-09-29 16:18] VITALS: BP 113/52
== END 2020-09-29 16:17 | disposition home or self-care (01) ==
LOC: ED 08:06
DX: N39.0 Urinary tract infection, site not specified (principal); R11.2 Nausea with vomiting, unspecified; D25.9 Leiomyoma of uterus, unspecified; N83.209 Unspecified ovarian cyst, unspecified side; R16.0 Hepatomegaly, not elsewhere classified; R10.10 Upper abdominal pain, unspecified; I10 Essential (primary) hypertension; Z79.899 Other long term (current) drug therapy
CPT/HCPCS: 36415; 74022; 74177; 76700; 80053; 81001; 83690; 84703; 85025; 87086; 93975; 96361; 96374; 96375; 99284; J1200; J2270; J2405; J2765; J7030; Q9967